=== PATIENT | male | born 1980 | race Caucasian/White ===

== ENCOUNTER 2018-01-06 09:40 | Emergency (ER) | payer BC ==
[2018-01-06 10:03] VITALS: BP 115/73
--- NOTE | 2018-01-06 10:26 | UC ---
Lower Extremity/Ankle HPI - HPI Summary HPI Summary: 37 y/o male presents to the urgent care c/o left ankle pain s/p stepping off the porch and twisting his ankle around 1100am yesterday. Pt reports he heard a pop and he has moderate swelling over the medial malleolus. He applied ice and he has been taking Ibuprofen PO 600mg to alleviate symptoms. Last dose taking was this morning at 0600AM. Pain is sharp 6/10 at rest and 10/10 w/ movement and associated w/ mild numbness around the lateral side. Pt denies fever, calf pain, SOB, chest pain, abdominal pain, N/V/D - History of Current Complaint Chief Complaint: UCLowerExtremity Stated Complaint: LT ANKLE Time Seen by Provider: 01/06/18 10:24 Hx Obtained From: Patient Onset/Duration: Sudden Onset, Lasting Days - 1 day, Still Present, Worse Since - today Severity Initially: Moderate Severity Currently: Moderate Pain Intensity: 10 - w/ movement Pain Scale Used: 0-10 Numeric Aggravating Factor(s): Standing, Ambulation Alleviating Factor(s): Rest, Ice, OTC Meds Able to Bear Weight: Yes - Risk Factors Gout Risk Factors: Negative DVT Risk Factors: Negative Septic Arthritis Risk Factor: Negative - Allergies/Home Medications Allergies/Adverse Reactions: Allergies Allergy/AdvReac Type Severity Reaction Status Date / Time No Known Allergies Allergy Verified 01/06/18 10:00 PMH/Surg Hx/FS Hx/Imm Hx Previously Healthy: Yes - Pt denies PMHX - Surgical History Surgical History: None - Family History Known Family History: Positive: Diabetes - Social History Occupation: Employed Full-time Lives: With Family Alcohol Use: Rare Substance Use Type: None Smoking Status (MU): Heavy Every Day Tobacco Smoker Amount Used/How Often: 1 ppd Review of Systems Constitutional: Negative Skin: Negative Eyes: Negative ENT: Negative Respiratory: Negative Cardiovascular: Negative Gastrointestinal: Negative Genitourinary: Negative Motor: Negative Neurovascular: Negative Musculoskeletal: Decreased ROM - left ankle, Other: - left ankle pain s/p injury Neurological: Negative Psychological: Negative Is Patient Immunocompromised?: No All Other Systems Reviewed And Are Negative: Yes Physical Exam - Summary Physical Exam Summary: Vital Signs Reviewed: Yes General: well developed, well nourished male, sitting in the examining table w/ o any apparent distress Eyes: Positive: Conjunctiva Clear - PERRLA, EOMI, ENT: Positive: Normal ENT inspection, Hearing grossly normal, Pharynx normal, TMs normal Neck: Positive: Supple, Nontender, No Lymphadenopathy Respiratory: Positive: Chest non-tender, Lungs clear, Normal breath sounds, No respiratory distress Cardiovascular: Positive: RRR, No Murmur, Pulses Normal, Brisk Capillary Refill Abdomen Description: Positive: Nontender, No Organomegaly, Soft. Negative: CVA Tenderness (R), CVA Tenderness (L) Bowel Sounds: Positive: Present Musculoskeletal: - Ankle: Pt is able to bear weight and ambulate w/ limping. The L ankle is without obvious asymmetry or deformity when compared to the R ankle. Decreased ROM due to pain. Moderate swelling at the lateral malleolus, with tenderness to palpation. No ecchymosis or bruising observed. No tenderness to palpation over the medial malleolus , no swelling observed. Talar tilt test is negative for ligament laxity to valgus or varus stress. Negative anterior drawer. Peroneal nerve is intact with strong eversion and plantar flexion. Positive sensation over the Rt foot and Rt ankle, positive pulses, capillary refill intact Neurological Exam: Normal Psychological Exam: Normal Skin: warm and dry Triage Information Reviewed: Yes Vital Signs: Initial Vital Signs Temp 99 F 01/06/18 09:58 Pulse 75 01/06/18 09:58 Resp 16 01/06/18 09:58 BP 115/73 01/06/18 09:58 Pulse Ox 100 01/06/18 09:58 Lower Extremity Course/Dx - Course Course Of Treatment: 37 y/o male presents to the urgent care c/o left ankle pain s/p stepping off the porch and twisting his ankle around 1100am yesterday. Pt reports he heard a pop and he has moderate swelling over the medial malleolus. He applied ice and he has been taking Ibuprofen PO 600mg to alleviate symptoms. Last dose taking was this morning at 0600AM. Pain is sharp 6 /10 at rest and 10/10 w/ movement and associated w/ mild numbness around the lateral side. Pt denies fever, calf pain, SOB, chest pain, abdominal pain, N/V/ D. Hx obtained. LF ankle X-ray ordered, Impression: small avulsion fracture from the lateral malleolus. I discussed Pt's symptoms w/ Dr Baxter and he recommended Cam-cash, crutches and f/u w/ Orthopedic Dr Thomas Pt immobilized CAM cash.There was no neurovascular compromise after splint application; Pt given crutches to avoid weight bearing, Rx Naproxen PO to decrease swelling and pain. Pt advised RICE, take Naproxen PO for pain and to f/u with Orthopedic DR Thomas in 1-2 days for further treatment. Pt understood and agreed and left the clinic ambulating w/ the help of crutches. - Differential Dx/Diagnosis Differential Diagnosis/HQI/PQRI: Contusion, Fracture (Closed), Sprain, Strain, Tendonitis Provider Diagnoses: 1- Left acute ankle pain s/p injury. 2- Left ankle w/ small avulsion fracture from the lateral malleolus Discharge - Sign-Out/Discharge Documenting (check all that apply): Discharge/Admit/Transfer - D/C home - Discharge Plan Condition: Stable Disposition: HOME Prescriptions: Ibuprofen TAB* [Motrin TAB* 800 MG] 800 mg PO Q6H PRN #30 tab PRN Reason: Pain Patient Education Materials: Ankle Fracture (ED) Forms: *Work Release Referrals: Donavan Huertas [Primary Care Provider] - 3 Days Manav Thomas MD [Medical Doctor] - 1 Day Additional Instructions: 1-Please take medications as directed to alleviate pain and swelling. 2-Please apply ice, keep your ankle immobilized with the cash. Avoid weight bearing using the crutches, elevate your leg at night time 3- Please f/u with Orthopedic Dr Thomas in 1-2 days for further evaluation and treatment. - Billing Disposition and Condition Condition: STABLE Disposition: HOME
--- NOTE | 2018-01-06 11:17 | RAD ---
INDICATION: Left ankle pain COMPARISON: None TECHNIQUE: AP, lateral, and oblique views were obtained. FINDINGS: There is lateral soft tissue swelling with a tiny avulsion fracture from the lateral malleolus. There are no other fractures. The ankle mortise is intact IMPRESSION: SMALL AVULSION FRACTURE FROM THE LATERAL MALLEOLUS.
== END 2018-01-06 11:37 | disposition home or self-care (01) ==
LOC: UCCORT 09:40
DX: S82.62XA Displaced fracture of lateral malleolus of left fibula, initial encounter for closed fracture (principal); X50.0XXA Overexertion from strenuous movement or load, initial encounter; Y93.01 Activity, walking, marching and hiking; Y92.9 Unspecified place or not applicable; F17.210 Nicotine dependence, cigarettes, uncomplicated
CPT/HCPCS: 99203; G0463